=== PATIENT | female | born 1995 | race Caucasian/White ===

== ENCOUNTER 2025-02-16 22:46 | Emergency (ER) | payer SELFPAY ==
[2025-02-16 23:39] VITALS: BP 143/97; PULSE 81; RESP 17; TEMP 36.8; O2SAT 99; BMI 29.9
--- OUTSIDE RECORDS SUMMARY | 2025-02-17 00:49 | XMS_ITS | Referral Summary ---
Author Organization [employer] ([place], [place], [place], [place]) Address [address] [place] [address] Care Team Providers Care Embedded Systems Software Engineer Name Role Phone Janine Doe APRN Primary Care Provider + [phone] Encounters Date Type Department Care Team Description 11/27/2024 11:14 PM EDT - 11/28/2024 5:39 AM EDT Emergency [facility] [address] [place] [phone] Kari Nieto MD Low back pain (Primary Dx); Low back pain, unspecified back pain laterality, unspecified chronicity, unspecified whether sciatica present Discharge Disposition: Home or Self Care 11/27/2024 Travel from Last 3 Months Allergies Active Allergy Reactions Criticality Noted Date Comments Bee Pollens Hives High 04/22/2023 Cinnamon Analogues Swelling High 05/05/2020 Also cumin Medications ibuprofen (ADVIL,MOTRIN) 600 MG tablet Take 1 tablet (600 mg total) by mouth every 6 (six) hours if needed. 08/18/2023 Active cetirizine (ZyrTEC) 10 MG tablet Take 1 tablet (10 mg total) by mouth daily. 15 each 06/01/2024 Active amoxicillin (AMOXIL) 500 MG capsule Take 1 capsule (500 mg total) by mouth 3 (three) times daily. 30 each 06/01/2024 Active Active Problems Problem Noted Date Diagnosed Date Chest pain, unspecified type 04/04/2024 Other migraine without status migrainosus, not i ntractable 01/17/2024 Social History Tobacco Use Types Packs/Day Years Used Date Smoking Tobacco: Every Day Cigarettes Smokeless Tobacco: Current Tobacco Cessation:Ready to Q uit: Not Asked; Counseling Given: Not Answered Comments:Vape Alcohol Use Standard Drinks/Week Comments Yes 0 (1 standard drink = 0.6 oz pur e alcohol) socially Family and Community Support Answer Jim e Recorded Help with Day to Day Activities Not on file 11/20/2023 Feeling Lonely or Isolated Not on file 11/19 Educational Attainment Answer Date Bon rded Speak language other than Armenian at home Not on file 11/20/2023 Want help with school or training Not on file 11/20/2023 Substance Use Answer Date Recorded Used prescription meds for non-medical reasons N ot on file 11/20/2023 Used illegal drugs past 12 months Not on file 11/20/2023 Comments No Sex and Gender Information Value Date Recorded Sex Assigned at Not on file Legal Sex Female 9:04 PM CDT Gender Identity Not on file Sexual Orientation Not on file Last Filed Vital Signs Vital Sign Reading Time Taken Comments Blood Pressure 128/75 11/28/2024 5:38 AM EDT Pulse 70 11/28/2024 5:38 AM EDT Temperature 37 C (98.6 F) 11/28/2024 5:38 AM EDT Respiratory Rate 16 11/28/2024 5:38 AM EDT Oxygen Saturation 98% 11/28/2024 5:38 AM EDT Inhaled Oxygen Concentration - - Weight 99.8 kg (220 lb) 11/27/2024 10:45 PM EDT Height 175.3 cm (5' 9 ) 11/27/2024 10:45 PM EDT Body Mass Index 32.49 11/27/2024 10:45 PM EDT Plan of Treatment Not on file Procedures Procedure Name Priority Date/Time Associated Diagnosis Comments CT ABDOMEN/PELVIS WITH IV CONTRAST STAT 11/28/2024 3:[address] LUMBAR SPINE WITHOUT IV CONTRAST STAT 11/28/2024 3:26 AM EDT LIPASE STAT 11/28/2024 12:09 AM EDT COMPREHENSIVE METABOLIC PANEL STAT 11/28/2024 12:09 AM EDT HCG, QUANTITATIVE, STAT 11/28/2024 12:09 AM EDT CBC W/ AUTO DIFF STAT 11/28/2024 12:0 9 AM EDT [place] RED TOP (EXTRA TUBES) STAT 11/28/2024 12:09 AM EDT [place] BLUE TOP (EXTRA TUBES) STAT 11/28/2024 12:09 AM EDT [place] EXTRA TUBES STAT 11/28/2024 12:09 AM EDT URINALYSIS MICROSCOPIC STAT 11:19 PM EDT URINALYSIS, REFLEX MICROSCOPIC AND CULTURE IF INDICATED STAT 11/27/2024 11:19 PM EDT from Last 3 Months Results * CT ABDOMEN/PELVIS WITH IV CONTRAST (11/28/2024 3:27 AM EDT) Anatomical Region Laterality Modality Abdomen, Pelvis Computed Tomogra phy (CT) 11/28/2024 8:21 AM EDT Impressions 11/28/2024 9:[address] evidence of acute intraabdominal or intrapelvic abnormality. Images reviewed, interpreted, and dictated by Orin Gonzalez MD [facility] 11/28/2024 9:[address] ABDOMEN/PELVIS WITH CONTRAST INDICATION: Low back pain with lower abdominal cramping. TECHNIQUE: Thin section axial images were obtained through the abdomen and pelvis after intravenous contrast injection. Multiplanar reconstruction images were obtained from the axial data. The following dose reduction techniques were utilized during CT exam: -Automated exposure control -Adjustment of the mA and kV according to patient size -Use of iterative reconstruction technique. COMPARISON: None. FINDINGS: Lower chest: Clear. No abnormality. Liver: Homogeneous. No focal lesion. Gallbladder and biliary tree: Contracted gallbladder. No biliary ductal dilatation. Spleen: Unremarkable. Adrenal glands: Unremarkable. Pancreas: No mass. No findings of pancreatitis. Kidneys/ureters/bladder: No hydronephrosis, solid mass or perinephric stranding. The urinary bladder is unremarkable. GI tract: No small bowel obstruction. No focal wall thickening. Normal appendix. No acute colon abnormality. Pelvic solid organs: No acute abnormality. Lymph nodes/mesentery/retroperitoneum: No lymphadenopathy. Abdominal wall: Unremarkable. Vascular: No acute vascular abnormality. Free fluid: None. Bones: No acute osseous abnormality. Procedure Note Orin Gonzalez MD - 11/28/2024 CT ABDOMEN/PELVIS WITH CONTRAST INDICATION: Low back pain with lower abdominal cramping. TECHNIQUE: Thin section axial images were obtained through the abdomen and pelvis after intravenous contrast injection. Multiplanar reconstruction images were obtained from the axial data. The following dose reduction techniques were utilized during CT exam: -Automated exposure control -Adjustment of the mA and kV according to patient size -Use of iterative reconstruction technique. COMPARISON: None. FINDINGS: Lower chest: Clear. No abnormality. Liver: Homogeneous. No focal lesion. Gallbladder and biliary tree: Contracted gallbladder. No biliary ductal dilatation. Spleen: Unremarkable. Adrenal glands: Unremarkable. Pancreas: No mass. No findings of pancreatitis. Kidneys/ureters/bladder: No hydronephrosis, solid mass or perinephric stranding. The urinary bladder is unremarkable. GI tract: No small bowel obstruction. No focal wall thickening. Normal appendix. No acute colon abnormality. Pelvic solid organs: No acute abnormality. Lymph nodes/mesentery/retroperitoneum: No lymphadenopathy. Abdominal wall: Unremarkable. Vascular: No acute vascular abnormality. Free fluid: None. Bones: No acute osseous abnormality. IMPRESSION: No CT evidence of acute intraabdominal or intrapelvic abnormality. Images reviewed, interpreted, and dictated by Orin Gonzalez MD us Kari Nieto MD IMG CT ORDERABLES Final R esult * CT spine lumbar without IV contrast (11/28/2024 3:26 AM EDT) Anatomical Region Laterality Modality T-spine, L-spine, Pelvis Compute d Tomography (CT) 11/28/2024 7:31 AM EDT Impressions 11/28/2024 7:34 AM EDT No acute bony abnormality. Mild lower lumbar degenerative change. : 1995 Images reviewed, interpreted, and dictated by Kourtney Horton MD Narrative 11/28/2024 7:[address] LUMBAR SPINE HISTORY: Lower back pain that began on . No known injury. PROCEDURE: Axial images were obtained through the lumbar spine by computed tomography. Reconstruction images were also performed. This study was performed with techniques to keep radiation doses as low as reasonably achievable, (ALARA). Individualized dose reduction techniques using automated exposure control or adjustment of mA and/or kV according to the patient size were employed. FINDINGS: There is proper alignment with no subluxation. The vertebral bodies are of proper height. The facets overlap at all levels. L1-L2: No significant disc disease is present. There is no stenosis. L2-L3: No significant disc disease is present. There is no stenosis. L3-L4: No significant disc disease is present. There is no stenosis. L4-L5: No significant disc disease is present. There is no stenosis. L5-S1: There is minimal annular bulge without stenosis or neural foraminal narrowing. There is no stenosis. Procedure Note Kourtney Horton MD - 11/28/2024 CT LUMBAR SPINE HISTORY: Lower back pain that began on . No known injury. PROCEDURE: Axial images were obtained through the lumbar spine by computed tomography. Reconstruction images were also performed. This study was performed with techniques to keep radiation doses as low as reasonably achievable, (ALARA). Individualized dose reduction techniques using automated exposure control or adjustment of mA and/or kV according to the patient size were employed. FINDINGS: There is proper alignment with no subluxation. The vertebral bodies are of proper height. The facets overlap at all levels. L1-L2: No significant disc disease is present. There is no stenosis. L2-L3: No significant disc disease is present. There is no stenosis. L3-L4: No significant disc disease is present. There is no stenosis. L4-L5: No significant disc disease is present. There is no stenosis. L5-S1: There is minimal annular bulge without stenosis or neural foraminal narrowing. There is no stenosis. IMPRESSION: No acute bony abnormality. Mild lower lumbar degenerative change. : 1995 Images reviewed, interpreted, and dictated by Kourtney Horton MD us Kari Nieto MD IMG CT ORDERABLES Final R esult * Red Top Extra Tubes (11/28/2024 12:09 AM EDT) HOLD SPECIMEN (SJ - BKR) Hold for add-ons. 11/28/2024 2:00 AM EDT [facility] Comment:Auto resulted. Blood Venipuncture / Unknown 11/28/2024 12:09 AM EDT 11/28/2024 12:14 AM EDT us Kari Nieto MD LAB BLOOD ORDERABLES Haylee l Result [facility] [address] [place] [address] * Blue Top Extra Tubes (11/28/2024 12:09 AM EDT) HOLD SPECIMEN (SJ - BKR) Hold for add-ons. 11/28/2024 2:00 AM EDT [facility] Comment:Auto resulted. Blood Venipuncture / Unknown 11/28/2024 12:09 AM EDT 11/28/2024 12:13 AM EDT us Kari Nieto MD LAB BLOOD ORDERABLES Haylee l Result [facility] [address] [place] [address] * (ABNORMAL) CBC with Auto Diff (11/28/2024 12:09 AM EDT) WBC 7.5 4.8 - 10.8 K/ L 11/28/2024 12:23 AM EDT [facility] RBC 3.99 3.50 - 5.20 M/ L 11/28/2024 12:23 AM EDT [facility] Hemoglobin 12.2 11.7 - 15.8 GM/DL 11/28/2024 12:23 AM EDT [facility] Hematocrit 35.2 35.0 - 47.0 % 11/28/2024 12:23 AM EDT [facility] MCV 88 81 - 101 fL 11/28/2024 12:23 AM EDT [facility] MCH 30.6 27.0 - 34.0 pg 11/28/2024 12:23 AM EDT [facility] MCHC 34.7 32.0 - 36.0 GM/DL 11/28/2024 12:23 AM EDT [facility] RDW 12.4 11.5 - 14.5 % 11/28/2024 12:23 AM EDT [facility] Platelets 252 150 - 400 K/CU MM 11/28/2024 12:23 AM EDT [facility] MPV 9.2(L) 9.4 - 12.4 fL 11/28/2024 12:23 AM EDT [facility] Nucleated Red Blood Cell 0.0 0 - 0.2 % 11/28/2024 12:23 AM EDT [facility] % Neutros 42 37 - 80 % 11/28/2024 12:23 AM EDT [facility] % Lymphs 46 10 - 50 % 11/28/2024 12:23 AM EDT [facility] % Monos 8 5 - 13 % 11/28/2024 12:23 AM EDT [facility] % Eos 3 0 - 7 % 11/28/2024 12:23 AM EDT [facility] % Baso 0 0 - 3 % 11/28/2024 12:23 AM EDT [facility] NRBC Absolute <0.01 0 - 0.012 K/ul 11/28/2024 12:23 AM EDT [facility] # Neutros 3.17 2.00 - 6.90 K/ L 11/28/2024 12:23 AM EDT [facility] # Lymphs 3.46(H) 0.60 - 3.40 K/ L 11/28/2024 12:23 AM EDT [facility] # Monos 0.62 0.00 - 0.90 K/ L 11/28/2024 12:23 AM EDT [facility] # Eos 0.22 0.00 - 0.70 K/ L 11/28/2024 12:23 AM EDT [facility] # Baso 0.03 0.00 - 0.20 K/ L 11/28/2024 12:23 AM EDT [facility] Immature Granulocytes-Re lative 0.10 % 11/28/2024 12:23 AM EDT [facility] # IG 0.01(H) 0.00 - 0.00 K/uL 11/28/2024 12:23 AM EDT [facility] Blood Venipuncture / Unknown 11/28/2024 12:09 AM EDT 11/28/2024 12:13 AM EDT Narrative [facility] - 11/28/2024 12:23 AM EDT When CBC w/ Auto Diff is ordered the lab will add a Manual Differential as a quality check at no additional charge if: Lymphocytes greater than seventy five percent with normal or increased WBC Monocytes greater than Fifteen percent Basophil greater than four percent Bands >10% or several immature myeloids are seen on scan Blast? Flag noted Atypical Lymph flag noted us Kari Nieto MD LAB BLOOD ORDERABLES Haylee l Result [facility] [address] [place] [address] * hCG, quantitative, (11/28/2024 12:09 AM EDT) HCG Serum Quant 1 mIU/mL 11/28/2024 12:53 AM EDT [facility] Blood Venipuncture / Unknown 11/28/2024 12:09 AM EDT 11/28/2024 12:13 AM EDT Kari Nieto MD LAB BLOOD ORDERABLES Haylee l Result [facility] [address] [phone] * Lipase (11/28/2024 12:09 AM EDT) Lipase 20 16 - 77 U/L 11/28/2024 12:53 AM EDT [facility] Blood Venipuncture / Unknown 11/28/2024 12:09 AM EDT 11/28/2024 12:13 AM EDT us Kari Nieto MD LAB BLOOD ORDERABLES Haylee l Result [facility] [address] [place] [address] * (ABNORMAL) Comprehensive metabolic panel (11/28/2024 12:09 AM EDT) Pathologist [facility] Sodium 141 136 - 145 meq/L 11/28/2024 12:53 AM EDT [facility] Potassium 3.5 3.5 - 5.1 meq/L 11/28/2024 12:53 AM EDT [facility] Chloride 109(H) 98 - 107 meq/L 11/28/2024 12:53 AM EDT [facility] CO2 24 21 - 32 meq/L 11/28/2024 12:53 AM EDT [facility] Calcium 8.9 8.5 - 10.1 mg/dL 11/28/2024 12:53 AM EDT [facility] Glucose 100(H) 70 - 99 mg/dL 11/28/2024 12:53 AM EDT [facility] BUN 10 7 - 18 mg/dL 11/28/2024 12:53 AM EDT [facility] Creatinine 0.79 0.55 - 1.10 mg/dL 11/28/2024 12:53 AM EDT [facility] BUN/Creatinine 13 11/28/2024 12:53 AM EDT [facility] Albumin 3.3(L) 3.4 - 5.0 g/dL 11/28/2024 12:53 AM EDT [facility] Alkaline Phosphatase 80 46 - 116 U/L 11/28/2024 12:53 AM EDT [facility] ALT 20 12 - 78 U/L 11/28/2024 12:53 AM EDT [facility] AST 13(L) 15 - 37 U/L 11/28/2024 12:53 AM EDT [facility] Total Bilirubin 0.2 0.2 - 1.0 mg/dL 11/28/2024 12:53 AM EDT [facility] Protein, Total 6.7 6.4 - 8.2 gm/dL 11/28/2024 12:53 AM EDT [facility] Anion Gap 12 11 - 22 11/28/2024 12:53 AM EDT [facility] A/G Ratio 1.0 11/28/2024 12:53 AM EDT [facility] Globulin 3.4 g/dL 11/28/2024 12:53 AM EDT [facility] Osmolality Calc 280.4 mOsm/kg 12:53 AM EDT [facility] eGFR (mL/min/1.73m2) >60 >=60 mL/min/1.7 3m2 11/28/2024 12:53 AM EDT [facility] Comment:ESTIMATED GFR IS NOT ACCURATE CREATININE CLEARANCE IN PREDICTING GLOMERULAR FILTRATION RATE. ESTIMATED GFR IS NOT APPLICABLE FOR DIALYSIS PATIENTS. Blood Venipuncture / Unknown 11/28/2024 12:09 AM EDT 11/28/2024 12:13 AM EDT us Kari Nieto MD LAB BLOOD ORDERABLES Haylee loja Result [facility] [address] [place] [id number] [phone] * (ABNORMAL) Urinalysis, Reflex Microscopic and Culture If Indicated (11/27/2024 11:19 PM EDT) Color, UA Light Yellow 11/27/2024 11:44 PM EDT [facility] Clarity, UA Slightly Cloudy 11/27/2024 11:44 PM EDT [facility] Specific [place], UA 1.015 1.002 - 1.030 11/27/2024 11:44 PM EDT [facility] pH, UA 6.5 5.0 - 9.0 11/27/2024 11:44 PM EDT [facility] Leukocytes, UA Negative Negative 11/27/2024 11:44 PM EDT [facility] Nitrite, UA Negative Negative 11/27/2024 11:44 PM EDT [facility] Protein, UA Negative Negative 11/27/2024 11:44 PM EDT [facility] Glucose, UA Negative Negative 11/27/2024 11:44 PM EDT [facility] Ketones, UA Negative Negative 11/27/2024 11:44 PM EDT [facility] Bilirubin, UA Negative Negative 11/27/2024 11:44 PM EDT [facility] Blood, UA 2+(A) Negative 11/27/2024 11:44 PM EDT [facility] Urobilinogen, UA 1.0 mg/dL Normal 11/27/2024 11:44 PM EDT [facility] Specimen Source Urine, Clean Catch 11/27/2024 11:44 PM EDT [facility] Urine URINE SPECIMEN COLLECTION, CLEAN CATCH / Unknown 11/27/2024 11:19 PM EDT 11/27/2024 11:21 PM EDT us Kari Nieto MD URINE ORDERABLES Final Re sult [facility] [address] [place] [id number] [phone] * (ABNORMAL) Urinalysis Microscopic Only (11/27/2024 11:19 PM EDT) WBC, UA Occasional None Seen, Occasional , 0-5 /HPF 11/28/2024 12:00 AM EDT [facility] RBC, UA 10-20(A) None Seen, Rare /HPF 11/28/2024 12:00 AM EDT [facility] Bacteria, UA Trace(A) None Seen 11/28/2024 12:00 AM EDT [facility] Epithelial Cells, UA 0-5(A) None Seen, Rare /HPF 11/28/2024 12:00 AM EDT [facility] Amorphous Crystals 2+(A) None Seen, Trace 11/28/2024 12:00 AM EDT [facility] Urine URINE SPECIMEN COLLECTION, CLEAN CATCH / Unknown 11/27/2024 11:19 PM EDT 11/27/2024 11:21 PM EDT us Kari Nieto MD URINE ORDERABLES Final Re sult [facility] [address] [id number], [facility] [phone] from Last 3 Months Insurance BLUE CROSS/BLUE [employer] Care Teams Embedded Systems Software Engineer Relationship Specialty Start Date End Date Janine Doe APRN [address] [place] [address] PCP - General 01/16/24
--- OUTSIDE RECORDS SUMMARY | 2025-02-17 00:49 | XMS_ITS | Clinical Summary ---
Author Organization [employer] ([place], [place], [place], [place]) Address [address] [place] [address] Care Team Providers Care Qa Test Lead Name Role Phone Serge Doeica HOLLY Primary Care Provider + [phone] Allergies Active Allergy Reactions Criticality Noted Date [...] without status migrainosus, not i ntractable 01/17/2024 Encounters Date Type Department Care Team Description 11/27/2024 11:14 PM EDT - 11/28/2024 5:39 AM EDT Emergency [facility] Emergency Department [address] [place] [phone] Kari Nieto MD Low back pain (Primary Dx); Low back pain, unspecified back pain laterality, unspecified chronicity, unspecified whether sciatica present Discharge Disposition: Home or Self Care 11/27/2024 Travel from Last 3 Months Family History Medical History Relation Name Comments Arthritis Other Cancer Other Diabetes Other High blood pressure Other Hyperlipidemia Other Stroke Other Relation Name Status Comments Other Social History Tobacco Use Types Packs/Day Years [...] Date Bon rded Speak language other than Cameroonian at home Not on file 11/20/2023 Want [...] 11/27/2024 10:45 PM EDT Plan of Treatment Health Maintenance Due Date Last Done Comments Depression Screening (12+) 2006 Tobacco Cessation Counseling and Screening (12+) 2006 HIV Screening 2009 Hepatitis C Screening 2012 DTAP/TDAP/TD VACCINES (3 - Tdap) 2013 06/12/19 98, 09/29/1995 Pneumococcal Vaccine: 0-49 Y ears (1 of 2 - PCV) 2013 Lipid Panel 2014 Pap Smear 2015 COVID-19 VACCINE ( - season) 2024, 08/28/2020 Influenza Vaccine (#1) 2025 Procedures Procedure Name Priority Date/Time Associated Diagnosis [...] interpreted, and dictated by Orin Gonzalez MD Narrative 11/28/2024 9:[address] ABDOMEN/PELVIS WITH [...] interpreted, and dictated by Kourtney Horton MD Kari Nieto MD IMG CT ORDERABLES Final R esult * Red Top Extra Tubes (11/28/2024 12:09 AM EDT) HOLD SPECIMEN (SJ - BKR) Hold for add-ons. 11/28/2024 2:00 AM EDT [facility] Comment:Auto resulted. Blood Venipuncture / Unknown 11/28/2024 12:09 AM EDT 11/28/2024 12:14 AM EDT Kari Nieto MD LAB BLOOD ORDERABLES Haylee l Result [facility] [address] [place] [address] * Blue Top Extra Tubes (11/28/2024 12:09 AM EDT) HOLD SPECIMEN (SJ - BKR) Hold for add-ons. 11/28/2024 2:00 AM EDT [facility] Comment:Auto resulted. Blood Venipuncture / Unknown 11/28/2024 12:09 AM EDT 11/28/2024 12:13 AM EDT us Kari Nieto MD LAB BLOOD ORDERABLES Haylee loja Result [facility] [address] [phone] * (ABNORMAL) CBC with Auto Diff (11/28/2024 12:09 AM EDT) WBC 7.5 4.8 - 10.8 K/ L 11/28/2024 12:23 AM EDT [facility] RBC 3.99 3.50 - 5.20 M/ L 11/28/2024 12:23 AM EDT [facility] Hemoglobin 12.2 11.7 - 15.8 GM/DL 11/28/2024 12:23 AM EDT [facility] Hematocrit 35.2 35.0 - 47.0 % 11/28/2024 12:23 AM EDT [facility] MCV 88 81 - 101 fL 11/28/2024 12:23 AM EDT [facility] MCH 30.6 27.0 - 34.0 pg 11/28/2024 12:23 AM EDT [facility] MCHC 34.7 32.0 - 36.0 GM/DL 11/28/2024 12:23 AM EDT [facility] RDW 12.4 11.5 - 14.5 % 11/28/2024 12:23 AM EDT [facility] Platelets 252 150 - 400 K/CU MM 11/28/2024 12:23 AM EDT [facility] MPV 9.2(L) 9.4 - 12.4 fL 11/28/2024 12:23 AM EDT [facility] Nucleated Red Blood Cell 0.0 0 - 0.2 % 11/28/2024 12:23 AM EDT [facility] % Neutros 42 37 - 80 % 11/28/2024 12:23 AM EDT [facility] % Lymphs 46 10 - 50 % 11/28/2024 12:23 AM EDT [facility] % Monos 8 5 - 13 % 11/28/2024 12:23 AM EDT [facility] % Eos 3 0 - 7 % 11/28/2024 12:23 AM EDT [facility] % Baso 0 0 - 3 % 11/28/2024 12:23 AM EDT [facility] NRBC Absolute <0.01 0 - 0.012 K/ul 11/28/2024 12:23 AM EDT [facility] # Neutros 3.17 2.00 - 6.90 K/ L 11/28/2024 12:23 AM EDT [facility] # Lymphs 3.46(H) 0.60 - 3.40 K/ L 11/28/2024 12:23 AM EDT [facility] # Monos 0.62 0.00 - 0.90 K/ L 11/28/2024 12:23 AM EDT [facility] # Eos 0.22 0.00 - 0.70 K/ L 11/28/2024 12:23 AM EDT [facility] # Baso 0.03 0.00 - 0.20 K/ L 11/28/2024 12:23 AM EDT [facility] Immature Granulocytes-Re lative 0.10 % 11/28/2024 12:23 AM EDT [facility] # IG 0.01(H) 0.00 - 0.00 K/uL 11/28/2024 12:23 AM EDT [facility] Blood Venipuncture / Unknown 11/28/2024 12:09 AM EDT 11/28/2024 12:13 AM EDT Narrative [facility] - 11/28/2024 12:23 AM EDT [...] MD LAB BLOOD ORDERABLES Haylee loja Result [facility] [address] [place] [address] * hCG, quantitative, (11/28/2024 12:09 AM EDT) HCG Serum Quant 1 mIU/mL 11/28/2024 12:53 AM EDT [facility] Blood Venipuncture / Unknown 11/28/2024 12:09 AM EDT 11/28/2024 12:13 AM EDT Kari Nieto MD LAB BLOOD ORDERABLES Haylee l Result Performing Organization Address City/[facility]/ZIP Co de Phone Number [facility] [address] [place] [address] * Lipase (11/28/2024 12:09 AM EDT) Pathologist [facility] Lipase 20 16 - 77 U/L 11/28/2024 12:53 AM EDT [facility] Blood Venipuncture / Unknown 11/28/2024 12:09 AM EDT 11/28/2024 12:13 AM EDT Kari Nieto MD LAB BLOOD ORDERABLES Haylee l Result Performing Organization Address [facility]/ZIP Co de Phone Number [facility] [address] [place] [address] * (ABNORMAL) Comprehensive metabolic panel (11/28/2024 12:09 AM EDT) Sodium 141 136 - 145 meq/L 11/28/2024 12:53 AM EDT [facility] Potassium 3.5 3.5 - 5.1 meq/L 11/28/2024 12:53 AM EDT [facility] Chloride 109(H) 98 - 107 meq/L 11/28/2024 12:53 AM EDT [facility] CO2 24 21 - 32 meq/L 11/28/2024 12:53 AM EDT [facility] Calcium 8.9 8.5 - 10.1 mg/dL 11/28/2024 12:53 AM EDT [facility] Glucose 100(H) 70 - 99 mg/dL 11/28/2024 12:53 AM EDT [facility] BUN 10 7 - 18 mg/dL 11/28/2024 12:53 AM EDT [facility] Creatinine 0.79 0.55 - 1.10 mg/dL 11/28/2024 12:53 AM EDT [facility] BUN/Creatinine 13 11/28/2024 12:53 AM EDT [facility] Albumin 3.3(L) 3.4 - 5.0 g/dL 11/28/2024 12:53 AM [facility] Alkaline Phosphatase 80 46 - 116 U/L 11/28/2024 12:53 [facility] ALT 20 12 - 78 U/L 11/28/2024 12:53 AM EDT [facility] AST 13(L) 15 - 37 U/L 11/28/2024 12:53 AM [facility] Total Bilirubin 0.2 0.2 - 1.0 mg/dL 11/28/2024 12:53 AM T [facility] Protein, Total 6.7 6.4 - 8.2 gm/dL 11/28/2024 12:53 AM [facility] Anion Gap 12 11 - 22 11/28/2024 12:53 AM T [facility] A/G Ratio 1.0 11/28/2024 12:53 AM T [facility] Globulin 3.4 g/dL 11/28/2024 12:53 AM [facility] Osmolality Calc 280.4 mOsm/kg 12:53 AM [facility] eGFR (mL/min/1.73m2) >60 >=60 mL/min/1.7 3m2 11/28/2024 12:53 AM [facility] Comment:ESTIMATED GFR IS NOT ACCURATE CREATININE CLEARANCE IN PREDICTING GLOMERULAR FILTRATION RATE. ESTIMATED GFR IS NOT APPLICABLE FOR DIALYSIS PATIENTS. Blood Venipuncture / Unknown 11/28/2024 12:09 AM EDT 11/28/2024 12:13 AM EDT us Kari Nieto MD LAB BLOOD ORDERABLES Haylee loja Result [facility] [address] [place], [place] [address] [phone] * (ABNORMAL) Urinalysis, Reflex Microscopic and Culture If Indicated (11/27/2024 11:19 PM EDT) Color, UA Light Yellow 11/27/2024 11:44 PM EDT [facility] Clarity, UA Slightly Cloudy 11/27/2024 11:44 PM EDT [facility] Specific [place], UA 1.015 1.002 - 1.030 11/27/2024 11:44 PM EDT [facility] pH, UA 6.5 5.0 - 9.0 11/27/2024 11:44 PM EDT [facility] Leukocytes, UA Negative Negative 11/27/2024 11:44 PM EDT [facility] Nitrite, UA Negative Negative 11/27/2024 11:44 PM EDT [facility] Protein, UA Negative Negative 11/27/2024 11:44 PM EDT [facility] Glucose, UA Negative Negative 11/27/2024 11:44 PM EDT [facility] Ketones, UA Negative Negative 11/27/2024 11:44 PM EDT [facility] Bilirubin, UA Negative Negative 11/27/2024 11:44 PM EDT [facility] Blood, UA 2+(A) Negative 11/27/2024 11:44 PM EDT [facility] Urobilinogen, UA 1.0 mg/dL Normal 11/27/2024 11:44 PM EDT [facility] Specimen Source Urine, Clean Catch 11/27/2024 11:44 PM EDT [facility] Urine URINE SPECIMEN COLLECTION, CLEAN CATCH / Unknown 11/27/2024 11:19 PM EDT 11/27/2024 11:21 PM EDT us Kari Nieto MD URINE ORDERABLES Final Re sult [facility] [address] [phone] * (ABNORMAL) Urinalysis Microscopic Only (11/27/2024 11:19 PM EDT) WBC, UA Occasional None Seen, Occasional , 0-5 /HPF 11/28/2024 12:00 AM EDT [facility] RBC, UA 10-20(A) None Seen, Rare /HPF 11/28/2024 12:00 AM EDT [facility] Bacteria, UA Trace(A) None Seen 11/28/2024 12:00 AM EDT [facility] Epithelial Cells, UA 0-5(A) None Seen, Rare /HPF 11/28/2024 12:00 AM EDT [facility] Amorphous Crystals 2+(A) None Seen, Trace 11/28/2024 12:00 AM EDT [facility] Urine URINE SPECIMEN COLLECTION, CLEAN CATCH / Unknown 11/27/2024 11:19 PM EDT 11/27/2024 11:21 PM EDT us Kari Nieto MD URINE ORDERABLES Final Re sult [facility] [address] [place] [address] from Last 3 Months Insurance BLUE CROSS/BLUE [employer]IELD Care Teams Qa Test Lead Relationship Specialty Start Date End Date Janine Doe APRN [address] [place] [place] [address] PCP - General 01/16/24
[2025-02-17 01:18] LABS: Microscopic, Urine URINE MICROSCOPIC (MICROSCOPIC)
[2025-02-17 01:20] LABS: Bilirubin,Urine Negative (Negative); Color,Urine YELLOW (Yellow); Glucose,Urine (UA) Negative (Negative); Ketones,Urine Negative (Negative); Leukocyte Esterase,Urine Negative (Negative); PH,Urine 6.5 (5.0-8.5); Protein,Urine Negative (Negative); Specific Gravity, Urine 1.025 (1.005-1.030); Urobilinogen,Urine 1.0 EU/dl (0.2)
[2025-02-17 01:31] LABS: Squamous Epithelial Cell,Urine Occasional #/hpf (0-5)
[2025-02-17 01:53] LABS: Urine Pregnancy, HCG Qual. Negative (Negative)
[2025-02-17] MEDS: LIDOCAINE 1% 5ML PF VIAL 5 ML IJ (03:11)
--- NOTE | 2025-02-17 03:15 | HMH.EDGENADL ---
Discharge Plan Disposition Patient Disposition: Home, Self-Care Condition: Good Prescriptions Prescriptions: New cephalexin 500 mg capsule 500 mg PO QID 5 Days Qty: 20 0RF Referrals Follow up/Referrals: Provider,Referral, [Primary Care Provider, Medical] - See instructions Svetlana Leija DPM [Staff Physician, Podiatry] - See instructions Referral Note: R 2nd toe partial nail removal RE ingrown nail, needs follow up Activity Restrictions/Add. Instructions Additional Instructions/Restrictions: You were evaluated in the ER and I believe to be appropriate for discharge at this time. Take Tylenol and ibuprofen if needed for pain. Drink plenty of water to maintain good hydration. Take the prescribed antibiotics as directed, do not skip doses, do not stop taking them early. Keep the wound clean and dry. Shower/bathe like normal. As discussed, keep a small piece of paper or foil under the edge of the nail to keep it from growing inward again. Call Dr. Leija's office and make an appointment for close outpatient follow-up for reevaluation. Return to the ER with any new, worsening, or otherwise concerning symptoms. Clinical Impressions Clinical Impression: Ingrowing toenail, Paronychia, Dysuria Instructions Patient Instructions: Ingrown Toenail Removal, DI for Ingrown Toenail Removal Print Language Print Language: Tamazight Discharge ED Provider: Melly Hanson General Adult HPI General Chief complaint: PAIN Stated complaint: Right Index toe red,swollen,hot to touch Time Seen by Provider: 02/17/25 01:47 Mode of Arrival: Ambulatory Source of Information: Patient Description of Symptoms (Recalled from ER Triage Doc. by RN): patient to ED with complaints of right index toe pain. patient with hx of ingrown toenails. toe swollen, red, and warm to touch. Patient states that it is painful for ambulation. Also states that she thinks that she has a UTI, describes painful urination, and frequency. History of Present Illness HPI narrative: 29-year-old female presents to the ER complaining of right second toe pain. Patient reports a history of ingrown toenails. She states it is swollen, red, warm to the touch, she is concerned it is becoming infected. Patient reports it hurts to walk on her touch at this time. She states for the last few weeks she has also been having some painful urination and urinary frequency, but she has been drinking water and cranberry juice and it seems to be improving. She would like to be checked for urinary tract infection. Patient reports no concerns for STD but is willing to be tested for them. No fevers or chills, no other complaints or concerns. Related Data Previous Rx's ?Medication ?Instructions ?Recorded cephalexin 500 mg capsule 500 mg PO QID 5 days #20 caps 02/17/25 Allergies Allergy/AdvReac Type Severity Reaction Status Date / Time bee venom protein (honey bee) Allergy Anaphylaxis Verified 02/16/25 23:43 cinnamon Allergy Anaphylaxis Verified 02/16/25 23:43 [facility] Disclaimer: The information contained in this section may have been updated after the patient was seen, as this information can be updated by other users. Social History Smoking Status: Never smoker alcohol intake: current current occupational status: employed Travel in the last 8 weeks?: None ROS Obtained: Yes Systems reviewed as appropriate & no additional complaints except as documented Per HPI Physical Exam General General appearance: alert and in no apparent distress Head Head exam: atraumatic and normocephalic Eye Eye exam: Present PERRL and EOMI ENT ENT exam: Present mucous membranes moist Neck Neck exam: Present normal inspection and full ROM Chest Chest inspection: Present symmetric chest wall rise Respiratory Respiratory exam: Absent respiratory distress or stridor Cardiovascular Cardiovascular exam: Present regular rate and normal rhythm Abdominal Exam Abdominal exam: Present soft; Absent distention or tenderness Extremities Exam Extremities exam: Present full ROM Expanded Lower Extremity Exam Right: Top foot image:  1. Tenderness, erythema, swelling, ingrown nail, paronychia, neurovascularly intact Neurological Exam Neurological exam: Present alert and oriented X3; Absent motor sensory deficit Psychiatric Psychiatric exam: Present normal affect and normal mood Skin Skin exam: Present warm and dry Medical Decision Making Medical Records Screening: Per USPSTF and CDC recommendations, given the prevalence of disease in our region, it is our hospital?s policy to screen for HIV and viral Hepatitis for all patients aged 18 and over and those with ongoing risk factors. Chris Inquiry Pt receiving controlled substance: No Vital Signs: 02/16/25 23:39 Temperature 98.3 F Temperature Source Oral Pulse Rate [Left] 81 Respiratory Rate 17 Blood Pressure [Right Arm] 143/97 H Blood Pressure Mean [Right Arm] 112 Blood Pressure Source [Right Arm] Automatic Cuff Blood Pressure Position [Right Arm] Sitting 02 Sat by Pulse Oximetry 99 Oxygen Delivery Method Room Air Lab Data Lab Results 02/17/25 01:14: Urine Color Yellow, Urine Appearance Clear, Urine pH 6.5, Ur Specific [place] 1.025, Urine Protein Negative, Urine Glucose (UA) Negative, Urine Ketones Negative, Urine Blood Negative, Urine Nitrate Negative, Urine Bilirubin Negative, Urine Urobilinogen 1.0, Ur Leukocyte Esterase Negative, Urine RBC None, Urine WBC None, Ur Squamous Epith Cells Occasional, Urine Bacteria None, Urine HCG, Qual Negative Orders (Tests/Meds): ED MEDICATIONS Discontinued Medications Generic Name Dose Route Start Last Admin Trade Name Freq PRN Reason Stop Dose Admin Cephalexin HCl 1,000 mg 02/17/25 02:31 02/17/25 02:44 Cephalexin 500mg Capsule PO 02/17/25 02:32 1,000 mg ONCE ONE Administration Lidocaine HCl 5 ml 02/17/25 02:31 Lidocaine 1% 5ml Pf Vial IJ 02/17/25 02:32 ONCE ONE ORDERS Category Date Time Status Urinalysis and Microscopic Stat Lab 02/17/25 01:14 Completed Urine Chlam/Gono/Trich, TIMMY Stat Lab 02/17/25 01:14 Received Urine , HCG Qual. Stat Lab 02/17/25 01:14 Completed Medical Decision Narrative: In summary, this 29-year-old female presents to the emergency department today with right second toe pain, dysuria. On initial evaluation patient is hemodynamically stable, afebrile, GCS 15, physical exam is overall very reassuring with benign cardiopulmonary and abdominal exam, the only abnormality on exam that is appreciated is mild erythema, swelling, tenderness on the medial aspect of the right second toenail with evidence of ingrown nail and paronychia. Differential diagnosis includes but is not limited to urinary tract infection, STD, paronychia, ingrown toenail. Urine studies were ordered. After discussion of risks and benefits, patient consented to partial nail removal/ingrown toenail removal on the right second toe. See procedure note for details. Patient tolerated procedure well. She received Keflex for antibacterial treatment since there appears to be some associated cellulitis and paronychia. This was prescribed as well to her pharmacy of choice. UA negative for findings of infection, STI urine testing pending. Patient is appropriate for discharge at this time. Patient was given instructions on symptomatic management, antibiotic use, follow up instructions including referral to podiatry, and return precautions for the emergency department. Patient indicated understanding and was discharged in stable condition. Procedures Risk/Benefits of Procedure(s) Were Explained: Yes Miscellaneous Procedure Procedure Performed: Ingrown toenail removal/partial nail removal Indication: Ingrown nail, paronychia Location: Right second toe medial aspect Patient provided written and verbal consent after discussing risks and benefits Anesthetic: 1% lidocaine without epinephrine, 5 mL Procedure details: Area cleansed with chlorhexidine which was allowed to dry prior to procedure, single digit tourniquet applied. Nail was lifted with hemostats, ingrown fragment was removed from the medial aspect of the nail, removed the nail fragment all the way back to the nailbed. Tourniquet removed. Minimal bleeding. Patient tolerated procedure well. Post procedure details: No complications, tolerated procedure well Critical Care Critical Care Time Critical Care Time: No
[2025-02-17 03:32] VITALS: BP 132/78; PULSE 78; RESP 18; TEMP 36.6; O2SAT 100
--- NOTE | 2025-02-17 04:05 | PC.NURSE ---
1210, consent signed and paper placed in chart
== END 2025-02-17 03:33 | disposition home or self-care (01) ==
PROVIDERS: Emergency Provider Emergency Medicine
DX: L60.0 Ingrowing nail (principal); R30.0 Dysuria; L03.031 Cellulitis of right toe
CPT/HCPCS: 11760; 81001; 81025; 87491; 87591; 87661; 99283; J2003; J2004